=== PATIENT | female | born 1990 | race Two or more races ===

== ENCOUNTER 2017-05-11 21:45 | Emergency (ER) | payer OTHER ==
[~2017-05-11] VITALS: Ht 162.6 cm; Wt 57.0 kg
[2017-05-12] VITALS: BP 111/66
== END 2017-05-12 01:33 | disposition home or self-care (01) ==
LOC: ER 22:03
DX: S16.1XXA Strain of muscle, fascia and tendon at neck level, initial encounter (principal); Z88.0 Allergy status to penicillin; Z88.2 Allergy status to sulfonamides; V49.59XA Passenger injured in collision with other motor vehicles in traffic accident, initial encounter; Y93.89 Activity, other specified; Y92.89 Other specified places as the place of occurrence of the external cause; Y99.8 Other external cause status
CPT/HCPCS: 72040; 72100; 81025; 99284; Z7610